=== PATIENT | male | born 1980 | race Caucasian/White ===

== ENCOUNTER 2022-03-03 13:35 | Emergency (ER) | payer OTHER | END 2022-03-03 15:38 | disposition home or self-care (01) | LOC: JP.ED 13:35 | DX: G89.29 Other chronic pain (principal); M54.2 Cervicalgia; G56.20 Lesion of ulnar nerve, unspecified upper limb | CPT/HCPCS: 72052; 72052-26; 99283 ==

== ENCOUNTER 2022-11-11 07:16 | Day surgery (SDC) | payer OTHER ==
[~2022-11-11 07:16] MED LIST: Bupivacaine 0.5% 50 ML MDV ONE
[2022-11-11] MEDS ORDERED: Ondansetron 4 MG/2 ML SDV ONE (07:37)
[2022-11-11] MEDS ORDERED: Propofol 200 MG/20 ML SDV ONE (07:37)
[2022-11-11] MEDS ORDERED: Glycopyrrolate 0.2 MG/ML 5 ML MDV ONE (07:37)
[2022-11-11] MEDS ORDERED: Rocuronium 50 MG/5 ML Vial ONE (07:37)
[2022-11-11] MEDS ORDERED: Neostigmine Methylsulfate 1 MG/ML 5 ML Syringe ONE (07:37)
[2022-11-11] MEDS ORDERED: fentaNYL 250 MCG/5 ML SDV ONE (07:37)
[2022-11-11] MEDS ORDERED: Dexamethasone 4 MG/ML SDV ONE (07:37)
[2022-11-11] MEDS ORDERED: Bupivacaine 0.5% 30 ML SDV ONE (07:39)
[2022-11-11] MEDS ORDERED: Nozin Nasal Sanitizer NASBOTH SCH (08:00)
[2022-11-11 08:03] LABS: HEMATOCRIT 52.1 % (38.4-49.7); HEMOGLOBIN 17.9 g/dL (12.9-16.9); MEAN CORPUSCULAR HEMOGLOBIN 28.6 pg (31.6-35.5); MEAN CORPUSCULAR HGB CONC 34.4 g/dL (31.6-35.5); MEAN CORPUSCULAR VOLUME 83.4 fL (81.4-99.0); RED BLOOD CELL COUNT 6.25 M/uL (4.14-5.76); WHITE BLOOD CELL COUNT,WBC 5.3 K/uL (3.2-11.0)
[2022-11-11] MEDS ORDERED: oxyCODONE 5 MG Tab PO PRN (08:08)
[2022-11-11] MEDS ORDERED: Ondansetron 4 MG/2 ML SDV IVPUSH PRN (08:09)
[2022-11-11] MEDS ORDERED: Morphine 2 MG/ML SYRINGE IVPUSH PRN (08:09)
[2022-11-11] MEDS ORDERED: Acetaminophen 325 MG Tab PO PRN (08:09)
[2022-11-11] MEDS ORDERED: Docusate Sodium 100 MG Cap PO PRN (08:09)
[2022-11-11] MEDS ORDERED: Sodium Chloride 0.9% 1,000 ML IV SCH (08:15)
[2022-11-11] MEDS ORDERED: SUMAtriptan 50 MG Tab PO PRN (08:20)
[2022-11-11] MEDS ORDERED: [UNRECOGNIZED DRUG - OTHER] IM SCH (08:30)
[2022-11-11] MEDS ORDERED: TESTOSTERONE CYPIONATE 200 MG/ML IM SCH (08:30)
[2022-11-11] MEDS ORDERED: Lactated Ringers 1,000 ML IV SCH (08:30)
[2022-11-11 08:42] LABS: ALANINE AMINOTRANSFERASE,ALT 89 U/L (12-78); ALBUMIN 3.8 g/dL (3.4-5.0); ALKALINE PHOSPHATASE 65 U/L (46-116); ASPARTATE AMNIOTRANSFERASE,AST 42 U/L (15-37); BILIRUBIN TOTAL 0.5 mg/dL (0.2-1.0); BLOOD UREA NITROGEN,BUN 16 mg/dL (7-18); CALCIUM 8.8 mg/dL (8.5-10.1); CARBON DIOXIDE,CO2 28 mmol/L (21-32); CHLORIDE,CL 102 mmol/L (100-108); CREATININE 1.1 mg/dL (0.8-1.3); EST CRCL DRUG DOSING (CG) 79.75 mL/min; ESTIMATED GFR 86 mL/min (>60); GLUCOSE RANDOM 94 mg/dL (74-106); POTASSIUM,K 4.4 mmol/L (3.6-5.2); PROTEIN TOTAL,TP 7.5 g/dL (6.4-8.2); SODIUM,NA 138 mmol/L (140-148)
[2022-11-11 08:46] LABS: ANION GAP 12.4 mmol/L (5.0-14.0)
[2022-11-11] MEDS ORDERED: ceFAZolin 2 GM in Premix Bag 1 BAG IV ONE (09:00)
[2022-11-11] MEDS ORDERED: fentaNYL 100 MCG/2 ML SDV ONE ×2 (10:05→12:33)
[2022-11-11] MEDS ORDERED: Midazolam 1 MG/ML 2 ML SDV ONE (10:05)
[2022-11-11] MEDS: hydrOXYzine HCl 25 MG Tab PO PRN ×2 (14:19→18:39)
[2022-11-11] MEDS: ceFAZolin 2 GM in Premix Bag 1 BAG IV SCH (17:18)
[2022-11-11] MEDS ORDERED: hydrOXYzine HCl 25 MG Tab PO PRN (18:39)
[2022-11-11] MEDS: Aspirin 325 MG Tab.EC PO SCH (20:17)
[2022-11-11] MEDS: oxyCODONE 5 MG Tab PO PRN ×2 (20:17→23:33)
[2022-11-11] MEDS: Nozin Nasal Sanitizer NASBOTH SCH (20:18)
[2022-11-11] MEDS ORDERED: traZODone 50 MG Tab PO SCH (21:00)
[2022-11-12] MEDS: ceFAZolin 2 GM in Premix Bag 1 BAG IV SCH ×2 (02:26→10:23)
[2022-11-12] MEDS: oxyCODONE 5 MG Tab PO PRN (07:14)
[2022-11-12] MEDS ORDERED: Pantoprazole 40 MG Tab.CR PO SCH (07:30)
[2022-11-12] MEDS ORDERED: Rosuvastatin 10 MG Tab PO SCH (09:00)
[2022-11-12] MEDS ORDERED: Cholecalciferol (Vitamin D3) 25 MCG Tab PO SCH (09:00)
[2022-11-12] MEDS ORDERED: levETIRAcetam 250 MG Tab PO SCH (09:00)
[2022-11-12] MEDS: Nozin Nasal Sanitizer NASBOTH SCH (09:09)
[2022-11-12] MEDS: Aspirin 325 MG Tab.EC PO SCH (09:09)
== END 2022-11-12 15:00 | disposition home or self-care (01) ==
LOC: JP.SDS 07:16 → JP.MS 08:09 → JP.SDS 11-12 15:00
PROVIDERS: ATTEND Specialist
DX: M19.011 Primary osteoarthritis, right shoulder (principal); M25.711 Osteophyte, right shoulder; I10 Essential (primary) hypertension; E78.5 Hyperlipidemia, unspecified; G43.909 Migraine, unspecified, not intractable, without status migrainosus; Z88.1 Allergy status to other antibiotic agents; Z79.899 Other long term (current) drug therapy
CPT/HCPCS: 23472; 36415; 73020; 80053; 85027; 97161; 97535; A9270; C1713; J0690; J1100; J2250; J2270; J2405; J2704; J3010; J3490; J7030; J7120; J2710

== ENCOUNTER 2023-01-04 06:01 | Day surgery (SDC) | payer OTHER ==
[2023-01-04 06:17] LABS: HEMATOCRIT 51.5 % (38.4-49.7); HEMOGLOBIN 17.5 g/dL (12.9-16.9); MEAN CORPUSCULAR HEMOGLOBIN 28.9 pg (31.6-35.5); RED BLOOD CELL COUNT 6.06 M/uL (4.14-5.76); WHITE BLOOD CELL COUNT,WBC 7.2 K/uL (3.2-11.0)
[2023-01-04 06:38] LABS: ALANINE AMINOTRANSFERASE,ALT 68 U/L (12-78); ALBUMIN 3.8 g/dL (3.4-5.0); ALKALINE PHOSPHATASE 70 U/L (46-116); ASPARTATE AMNIOTRANSFERASE,AST 35 U/L (15-37); BILIRUBIN TOTAL 0.6 mg/dL (0.2-1.0); BLOOD UREA NITROGEN,BUN 16 mg/dL (7-18); CALCIUM 8.8 mg/dL (8.5-10.1); CARBON DIOXIDE,CO2 32 mmol/L (21-32); CHLORIDE,CL 102 mmol/L (100-108); CREATININE 1.1 mg/dL (0.8-1.3); EST CRCL DRUG DOSING (CG) 79.75 mL/min; ESTIMATED GFR 86 mL/min (>60); GLUCOSE RANDOM 95 mg/dL (74-106); POTASSIUM,K 4.7 mmol/L (3.6-5.2); PROTEIN TOTAL,TP 7.5 g/dL (6.4-8.2); SODIUM,NA 137 mmol/L (140-148)
[2023-01-04 06:39] LABS: ANION GAP 7.7 mmol/L (5.0-14.0)
[2023-01-04] MEDS ORDERED: Bupivacaine 0.5% 30 ML SDV ONE (06:41)
[2023-01-04] MEDS ORDERED: Nozin Nasal Sanitizer NASBOTH ONE (07:00)
[2023-01-04] MEDS ORDERED: Lactated Ringers 1,000 ML IV SCH (07:00)
[2023-01-04] MEDS ORDERED: Midazolam 1 MG/ML 2 ML SDV ONE (07:15)
[2023-01-04] MEDS ORDERED: Succinylcholine 200 MG/10 ML MDV ONE (07:15)
[2023-01-04] MEDS ORDERED: Neostigmine Methylsulfate 1 MG/ML 5 ML Syringe ONE (07:15)
[2023-01-04] MEDS ORDERED: Propofol 200 MG/20 ML SDV ONE (07:15)
[2023-01-04] MEDS ORDERED: Rocuronium 50 MG/5 ML Vial ONE (07:15)
[2023-01-04] MEDS ORDERED: fentaNYL 250 MCG/5 ML SDV ONE (07:15)
[2023-01-04] MEDS ORDERED: Dexamethasone 4 MG/ML SDV ONE (07:15)
[2023-01-04] MEDS ORDERED: Ondansetron 4 MG/2 ML SDV ONE (07:15)
[2023-01-04] MEDS ORDERED: Glycopyrrolate 0.2 MG/ML 5 ML MDV ONE (07:15)
[2023-01-04] MEDS ORDERED: ceFAZolin 2 GM in Premix Bag 1 BAG IV ONE (07:30)
[2023-01-04] MEDS ORDERED: fentaNYL 100 MCG/2 ML SDV ONE (09:01)
[2023-01-04] MEDS ORDERED: Acetaminophen/HYDROcodone 325-5 MG Tab PO PRN (10:07)
== END 2023-01-04 10:32 | disposition home or self-care (01) ==
LOC: JP.SDS 06:01
PROVIDERS: ATTEND Specialist
DX: G56.21 Lesion of ulnar nerve, right upper limb (principal); K21.9 Gastro-esophageal reflux disease without esophagitis; G40.909 Epilepsy, unspecified, not intractable, without status epilepticus; F43.10 Post-traumatic stress disorder, unspecified; F41.9 Anxiety disorder, unspecified; F32.A Depression, unspecified; Z88.1 Allergy status to other antibiotic agents; Z79.899 Other long term (current) drug therapy
CPT/HCPCS: 36415; 64718; 80053; 85027; A9270; J0330; J0690; J1100; J2250; J2405; J2704; J2710; J3010; J3490; J7120

== ENCOUNTER 2024-07-16 10:46 | Emergency (ER) | payer OTHER ==
[2024-07-16 12:36] LABS: BASE EXCESS VENOUS 3.2 mm/L; BASOPHILS ABSOLUTE AUTO 0.05 K/uL (0.00-0.10); BASOPHILS PERCENT AUTO 0.8 % (0.1-1.3); BICARBONATE,VENOUS 26.9 mmol/L; EOSINOPHILS ABSOLUTE AUTO 0.31 K/uL (0.00-0.40); EOSINOPHILS PERCENT AUTO 5.2 % (0.0-5.4); HEMATOCRIT 53.4 % (38.4-49.7); IMMATURE GRAN ABSOLUTE AUTO 0.03 K/uL (0.00-0.23); IMMATURE GRAN PERCENT AUTO 0.5 % (0.0-0.7); LYMPHOCYTES ABSOLUTE AUTO 1.26 K/uL (0.8-3.3); LYMPHOCYTES PERCENT AUTO 21.2 % (11.4-47.7); MEAN CORPUSCULAR HEMOGLOBIN 30.3 pg (31.6-35.5); MEAN CORPUSCULAR HGB CONC 34.6 g/dL (31.6-35.5); MEAN CORPUSCULAR VOLUME 87.4 fL (81.4-99.0); METHEMOGLOBIN 0.9 %; MONOCYTES ABSOLUTE AUTO 0.65 K/uL (0.20-0.90); NEUTROPHILS ABSOLUTE AUTO 3.63 K/uL (1.0-7.6); NEUTROPHILS PERCENT AUTO 61.3 % (40.0-78.1); O2 SATURATION VENOUS 89.6; PCO2 VENOUS 39.7 mm/Hg; PH,VENOUS 7.446 (7.350-7.450); PLATELET COUNT,PLT 241 K/uL (130-375); PO2 VENOUS 55.9 mm/Hg; RED BLOOD CELL COUNT 6.11 M/uL (4.14-5.76); WHITE BLOOD CELL COUNT,WBC 5.9 K/uL (3.2-11.0)
[2024-07-16 12:38] LABS: HEMOGLOBIN 18.5 g/dL (12.9-16.9)
[2024-07-16 12:46] LABS: APPEARANCE,URINE CLEAR (CLEAR); BILIRUBIN,URINE NEGATIVE (NEGATIVE); COLOR,URINE YELLOW (YELLOW); GLUCOSE,URINE NEGATIVE (NEGATIVE); KETONES,URINE NEGATIVE (NEGATIVE); LEUKOCYTE ESTERASE,URINE NEGATIVE (NEGATIVE); NITRITE,URINE NEGATIVE (NEGATIVE); OCCULT BLOOD,URINE NEGATIVE (NEGATIVE); PH,URINE 7.5 (5.0-8.0); PROTEIN,URINE TRACE mg/dL (NEGATIVE); UROBILINOGEN,URINE 0.2 EU/dL (0.2-1.0)
[2024-07-16 12:54] LABS: BACTERIA,URINE NOT SEEN; EPITHELIAL CELLS,URINE NOT SEEN; RBC,URINE NOT SEEN (0-5); WBC,URINE NOT SEEN (0-5)
[2024-07-16 13:10] LABS: A/G RATIO 1.1 (1.2-2.2); ALANINE AMINOTRANSFERASE,ALT 54 U/L (12-78); ALBUMIN 4.1 g/dL (3.4-5.0); ALKALINE PHOSPHATASE 53 U/L (46-116); ANION GAP 13.7 mmol/L (5.0-14.0); ASPARTATE AMNIOTRANSFERASE,AST 25 U/L (15-37); BILIRUBIN TOTAL 0.8 mg/dL (0.2-1.0); BLOOD UREA NITROGEN,BUN 15 mg/dL (7-18); CALCIUM 9.2 mg/dL (8.5-10.1); CARBON DIOXIDE,CO2 26 mmol/L (21-32); CHLORIDE,CL 101 mmol/L (100-108); CREATININE 1.2 mg/dL (0.8-1.3); EST CRCL DRUG DOSING (CG) 71.63 mL/min; ESTIMATED GFR 77 mL/min (>60); GLUCOSE RANDOM 88 mg/dL (74-106); POTASSIUM,K 4.7 mmol/L (3.6-5.2); PRO B-TYPE NATRIUR PEPT,BNPPRO 4 pg/mL (5-125); PROTEIN TOTAL,TP 7.7 g/dL (6.4-8.2); SODIUM,NA 136 mmol/L (140-148)
== END 2024-07-16 13:47 | disposition home or self-care (01) ==
LOC: JP.ED 10:46
DX: R07.89 Other chest pain (principal); I10 Essential (primary) hypertension; E78.00 Pure hypercholesterolemia, unspecified; J45.909 Unspecified asthma, uncomplicated; Z88.8 Allergy status to other drugs, medicaments and biological substances; Z79.899 Other long term (current) drug therapy
CPT/HCPCS: 36415; 70450; 71045; 80053; 81001; 82803; 83605; 83880; 84145; 84484; 85025; 93005; 99285